=== PATIENT | male | born 1985 | race Caucasian/White ===

== ENCOUNTER 2020-11-18 14:04 | Emergency (ER) | payer OTHER ==
[2020-11-18 14:11] VITALS: BP 129/90
[2020-11-18 15:07] LABS: EOS # 0.1 (0.04-0.40); EOS % 0.5 % (0.0-4.0); HEMATOCRIT 48.2 % (42.0-52.0); LYMPH# 1.7 (1.50-4.00); MEAN CELL VOLUME 84 fl (78-100); MEAN CORPUSCULAR HEMOGLOBIN 28 pg (27-31); MEAN CORPUSCULAR HGB CONC 33 g/dL (33-37); MEAN PLATELET VOLUME 8.6 fl (7.4-10.4); MONO # 0.9 (0.20-0.80); PLATELET COUNT 300 K/mm3 (130-400); RED BLOOD COUNT 5.73 M/mm3 (4.20-5.60); RED CELL DISTRIBUTION WIDTH 12.6 % (11.5-14.5); WHITE BLOOD COUNT 13.2 K/mm3 (4.8-10.8)
[2020-11-18 15:15] LABS: NEU # 10.6 (1.40-6.50)
[2020-11-18 15:28] LABS: URINE APPEARANCE HAZY; URINE BILIRUBIN NEGATIVE (NEGATIVE); URINE BLOOD TRACE (NEGATIVE); URINE COLOR YELLOW; URINE GLUCOSE NEGATIVE (NEGATIVE); URINE KETONE NEGATIVE (NEGATIVE); URINE LEUKOCYTE ESTERASE TRACE (NEGATIVE); URINE NITRATE NEGATIVE (NEGATIVE); URINE PROTEIN(semi-quant) NEGATIVE (NEGATIVE); URINE UROBILINOGEN NORMAL (NORMAL)
[2020-11-18 15:37] LABS: ALBUMIN 4.6 g/dL (3.5-5.0); POTASSIUM 4.4 mmol/L (3.5-5.1); SODIUM 140 mmol/L (136-145)
[2020-11-18 15:38] LABS: CALCIUM 9.8 mg/dL (8.3-10.5)
[2020-11-18 15:39] LABS: GLUCOSE 100 mg/dL (75-110)
[2020-11-18 15:40] LABS: CARBON DIOXIDE 27 mmol/L (22-29); TOTAL PROTEIN 7.6 g/dL (6.4-8.3)
[2020-11-18 15:41] LABS: TOTAL BILIRUBIN 0.5 mg/dL (0.2-1.2)
[2020-11-18 15:44] LABS: ALCOHOL IN-HOUSE < 10 mg/dL (<10)
[2020-11-18 15:45] LABS: AST-SGOT 47 U/L (5-34)
[2020-11-18 15:46] LABS: ALT/SGPT 128 U/L (0-55)
[2020-11-18 15:47] LABS: ACETAMINOPHEN < 1 ug/mL
== END 2020-11-18 17:50 | disposition home or self-care (01) ==
LOC: ED 14:04
PROVIDERS: Nurse Practitioner
DX: F39 Unspecified mood [affective] disorder (principal); F19.20 Other psychoactive substance dependence, uncomplicated; F17.200 Nicotine dependence, unspecified, uncomplicated